=== PATIENT | male | born 1965 | race Caucasian/White ===

== ENCOUNTER 2018-02-11 11:54 | Emergency (ER) | payer OTHER ==
[~2018-02-11] VITALS: Ht 185.4 cm; Wt 104.3 kg
[2018-02-11] MEDS ORDERED: OXYC1TAB11 (12:07)
[2018-02-11] MEDS ORDERED: ASPI81CH PO (12:08)
[2018-02-11] MEDS ORDERED: KETO10 PO (12:28)
== END 2018-02-11 12:43 | disposition home or self-care (01) ==
LOC: ER 11:54
DX: Z76.0 Encounter for issue of repeat prescription (principal); Z79.899 Other long term (current) drug therapy; Z79.82 Long term (current) use of aspirin
CPT/HCPCS: 99281